=== PATIENT | male | born 1945 | race American Indian/Alaskan Native ===

== ENCOUNTER 2017-11-13 00:24 | Emergency (ER) | payer MEDICARE, OTHER ==
[~2017-11-13] VITALS: Ht 162.6 cm; Wt 87.5 kg
[~2017-11-13 00:24] MED LIST: ADVIL200 M1 PO; ASPIRIN EC325 MG PO; CARDIZEM CD120 MG PO; CYCLOBENZAPRINE10 MG PO; CYCLOBENZAPRINE5 MG PO; D-20002000 UNIT PO; ELIQUIS5 MG PO; HYDROXYUREA500 MG PO; LEVOTHYROXINE50 MCG PO; TAMSULOSIN HCL0.4 MG PO; TRAMADOL HCL50 MG PO; TYLENOL325 MG PO
--- NOTE | 2017-11-13 18:23 | EKG ---
[facility] [address] [facility] [place] [address] Signed Sinus bradycardia Septal infarct , age undetermined Abnormal ECG When compared with ECG of 06-FEB-2016 03:09, Sinus rhythm has replaced Atrial fibrillation Septal infarct is now present Confirmed by EDOUARD MCWILLIAMS MD ([id number]) on 11/13/2017 6:22:51 PM Electronically Signed By: EDOUARD MCWILLIAMS MD 11/13/17 1823 PATIENT NAME: FLORA DANIELSON Electrocardiogram DATE OF : 45 PHYSICIAN: EDOUARD MCWILLIAMS MD REPORT #: [id number] REPORT IS CONFIDENTIAL AND NOT TO BE RELEASED WITHOUT AUTHORIZATION
== END 2017-11-13 02:45 | disposition home or self-care (01) ==
LOC: ED 00:24
DX: R20.2 Paresthesia of skin (principal); E03.9 Hypothyroidism, unspecified; Z88.5 Allergy status to narcotic agent; Z79.899 Other long term (current) drug therapy
CPT/HCPCS: 70450; 80053; 81001; 84484; 85025; 93005; 93010; 99284

== ENCOUNTER 2019-06-30 08:15 | Day surgery (SDC) | payer MEDICARE, OTHER ==
[~2019-06-30] VITALS: Ht 162.6 cm; Wt 88.0 kg
[~2019-06-30 08:15] MED LIST changes: +ACETAMINOPHEN325 M1 PO; +ADVIL200 MG PO; +XARELTO20 MG PO
[2019-06-30] MEDS ORDERED: ADULT ASPIRIN R81 MG PO (08:39)
[2019-06-30] MEDS ORDERED: XARELTO20 MG PO (08:39)
--- NOTE | 2019-06-30 10:27 | NUR ---
06/30/19 Amarjit6 Jazzmine Tierney9-PT ARRIVES ON RA TO PACU FROM ENDO ROOM. REPORT RECEIVED. VSS. SATS 98% ON RA. PT NONRESPONSIVE TO VERBAL STIMULUS AT THIS TIME. 1026-PT WAKES TO VERBAL STIMULUS. VSS.
--- NOTE | 2019-06-30 11:11 | NUR ---
RETURNED IS TOO SLEEPY TO GO HOME FAMILY IN ROOM. AROUSES WITH VIGOROUS TOUCH.
--- NOTE | 2019-06-30 11:54 | NUR ---
1130 PT WAKE AND REQUESTS TO GO HOME. HAS TAKEN SOME WATER. SAYS IM READY TO GET MY CLOTHES ON.
--- NOTE | 2019-07-01 07:08 | OR ---
[facility] [address] [place], [place] [address] Signed DATE OF OPERATION: 06/30/2019 SURGEON: Marky Gooden MD PREOPERATIVE DIAGNOSIS: Screening. POSTOPERATIVE DIAGNOSES: 1. Sessile polyps measuring 7-15 mm (at hepatic flexure, distal hepatic flexure), 95 cm, 85 cm, 78 cm (tattoo), 68 cm (tattoo), 28 cm and 22 cm (tattoo). 2. Eqfcxbg-lg-riozkoli internal hemorrhoids. PROCEDURE PERFORMED: Colonoscopy with hot biopsy and injection of tattoos x3. ESTIMATED BLOOD LOSS: None. INDICATIONS: Flora is a 73-year-old gentleman, who was asked to see me for a followup colonoscopy. He had a negative colonoscopy in [address] Barrett. He said there is no family history of colon cancer or polyps. He has no lower GI complaints. In the office, I gave Flora and his a booklet on colonoscopy. We did review the nature of the test along with the risks including, but not limited to gas bloating, crampy abdominal pain, bleeding, perforation requiring surgery, and missed diagnosis. We also discussed the need for IV conscious sedation. He had expressed understanding and wished to proceed. DESCRIPTION OF PROCEDURE: Flora was taken in the endoscopy suite and placed in the left lateral decubitus position. He was given a total of 6 mg of Versed and 200 mcg fentanyl to cover the case. A digital rectal exam was performed and this was unremarkable. The adult colonoscope was introduced and advanced around into the cecum itself under direct visualization of camera without difficulty. His prep was good. It took a little extra sedation, abdominal compression in order to advance the scope. The scope was slowly withdrawn. We could easily see the appendiceal orifice and the ileocecal valve. The above-mentioned polyps were removed with the help of hot biopsy forceps. We left tattoos at 78 cm, 68 cm, and 22 cm. The smallest polyps were 6 or 7 mm in diameter. The others were as high as 12 to 15 mm. We felt all were completely removed with a hot biopsy forceps. Because his prep was good, we felt we had a good view of his colon. We took significant time to evaluate the colon. We saw no diverticuli. The rectum was Electronically Signed By: MARKY GOODEN MD 07/01/19 0708 PATIENT NAME: FLORA DANIELSON OPERATIVE REPORT DATE OF : 45 REPORT #: [id number] PHYSICIAN: MARKY GOODEN MD PCP: JUAN C KIRKLAND MD REPORT IS CONFIDENTIAL AND NOT TO BE RELEASED WITHOUT AUTHORIZATION [facility] [address] [place], [place] [address] Signed unremarkable. Upon retroflexion of scope, we did appreciate ininjpj-gs-padbbvks internal hemorrhoids. After this, the gas was suctioned out and the colonoscope removed. Flora tolerated his procedure quite well. RECOMMENDATIONS: I will see Flora back in my office in 7 to 14 days to review his results. He can resume his aspirin, ibuprofen, and Xarelto in one week. Marky Gooden MD ALB/MODL /[id number] cc: MD Juan C Adams MD Andrew L Bower, MD Copies: MARIA ESTHER SOLANO MD, JAMES MD BOWER,MARKY Hilliard MD ~ Electronically Signed By: MARKY GOODEN MD 07/01/19 0708 PATIENT NAME: FLORA DANIELSON OPERATIVE REPORT DATE OF : 45 REPORT #: [id number] PHYSICIAN: MARKY GOODEN MD PCP: JUAN C KIRKLAND MD REPORT IS CONFIDENTIAL AND NOT TO BE RELEASED WITHOUT AUTHORIZATION
--- NOTE | 2019-07-01 16:52 | PATH ---
[facility] [address] [place], [place] [address] Signed SPECIMEN(S): A COLON POLYP AT 22 CM SPECIMEN(S): B COLON POLYP AT 68 CM SPECIMEN(S): C COLON POLYP AT 78 CM SPECIMEN(S): D HEPATIC FLEXURE POLYP SPECIMEN(S): E DISTAL HEPATIC FLEXURE POLYP SPECIMEN(S): F COLON POLYP AT 95 CM SPECIMEN(S): G COLON POLYP AT 85 CM SPECIMEN(S): H COLON POLYP AT 28 CM SPECIMEN SOURCE: A. COLON POLYP AT 22 CM B. COLON POLYP AT 68 CM C. COLON POLYP AT 78 CM D. HEPATIC FLEXURE POLYP E. DISTAL HEPATIC FLEXURE POLYP F. COLON POLYP AT 95 CM G. COLON POLYP AT 85 CM H. COLON POLYP AT 28 CM CLINICAL HISTORY: Screening. Postop: Colon polyps, internal hemorrhoids. MICROSCOPIC DESCRIPTION: Histologic sections of all submitted blocks are examined by light microscopy. These findings, together with the gross examination, support the pathologic diagnosis. FINAL PATHOLOGIC DIAGNOSIS: A. Mucosa, colon at 22 cm, biopsy: - Features suggestive but not diagnostic of adenomatous polyp (See comment). B. Mucosa, colon at 68 cm, biopsy: - Tubular adenoma. C. Mucosa, colon at 78 cm, biopsy: - Tubular adenoma. D. Mucosa, hepatic flexure, biopsy: - Tubular adenoma. E. Mucosa, distal hepatic flexure, biopsy: - Tubular adenoma. F. Mucosa, colon at 95, biopsy: - Features suggestive but not entirely diagnostic of adenomatous polyp (See comment). G. Mucosa, colon at 85 cm, biopsy: PATIENT NAME: FLORA DANIELSON PATHOLOGY DATE OF : 45 REPORT #: [id number] PHYSICIAN: JOANN PATHOLOGY PCP: JUAN C KIRKLAND MD REPORT IS CONFIDENTIAL AND NOT TO BE RELEASED WITHOUT AUTHORIZATION [facility] [address] [place], [place] [address] Signed - Tubular adenoma. H. Mucosa, colon at 28 cm, biopsy: - Tubular adenoma. COMMENT: A -- Multiple levels over three slides are examined. Complete evaluation not possible due to prominent heat type artifact. F -- Multiple levels over two slides are examined (block exhausted at that point). Superficial partial adenomatous change seen, heat artifact also complicates interpretation. LJA:cml:C2NR GROSS DESCRIPTION: Eight specimens are received in eight containers, labeled GS. A. The specimen, labeled "GS, 1" and "colon polyp at 22 cm" on the requisition, is received in formalin and consists of three soft mandel tissue fragments that vary from 0.2-0.3 cm and are submitted in toto in cassette A1. B. The specimen, labeled "GS, 2" and "colon polyp at 68 cm" on the requisition, is received in formalin and consists of three soft mandel tissue fragments that measure 0.3 cm each. The specimen is entirely submitted in cassette B1. C. The specimen, labeled "GS, 3" and "colon polyp at 78 cm" on the requisition, is received in formalin and consists of three soft mandel tissue fragments that vary from 0.1-0.3 cm and are submitted in toto in cassette C1 D. The specimen, labeled "GS, 4" and "hepatic flexure polyp" on the requisition, is received in formalin and consists of two soft mandel tissue fragments that measure 0.2 and 0.3 cm. The specimen is submitted in toto in cassette D1. E. The specimen, labeled "GS, 5" and "distal hepatic flexure polyp" on the requisition, is received in formalin and consists of seven soft mandel tissue fragments that vary from 0.1-0.3 cm and are submitted in toto in cassette E1. F. The specimen, labeled "GS, 6" and "colon polyp at 95 cm" on the requisition, is received in formalin and consists of a 0.3 cm soft mandel tissue fragment that is submitted in toto in cassette F1. G. The specimen, labeled "GS, 7" and "colon polyp at 85 cm" on the requisition, is received in formalin and consists of seven soft mandel tissue fragments that vary from 0.1-0.3 cm and are submitted in toto in cassette G1. PATIENT NAME: FLORA DANIELSON PATHOLOGY DATE OF : 45 REPORT #: [id number] PHYSICIAN: JOANN GROVE PCP: JUAN C KIRKLAND MD REPORT IS CONFIDENTIAL AND NOT TO BE RELEASED WITHOUT AUTHORIZATION [facility] [address] [place], [place] [address] Signed H. The specimen, labeled "GS, 8" and "colon polyp at 28 cm, is received in formalin and consists of two soft mandel tissue fragments that measure 0.3 cm each and are submitted in toto in cassette H1. SS (under the direct supervision of a pathologist) The Gross Description was prepared using a voice recognition system. The report was reviewed for accuracy; however, sound-alike word errors, addition and/or deletions may occur. If there is any question about this report, please contact Client Services. PERFORMING LABORATORY: The technical component was performed by [employer], [address] [place] [id number] (Granular Operator: Rhianna Mckeon MD; CLIA# [id number]). [facility], [address] [place] [address] (CLIA# [id number]). Diagnostician: Krishna Valentin MD Pathologist Electronically Signed 07/01/2019 Copies: ~ PATIENT NAME: FLORA DANIELSON PATHOLOGY DATE OF : 45 REPORT #: [id number] PHYSICIAN: JOANN GROVE PCP: JUAN C KIRKLAND MD REPORT IS CONFIDENTIAL AND NOT TO BE RELEASED WITHOUT AUTHORIZATION
== END 2019-06-30 11:40 | disposition home or self-care (01) ==
LOC: OPS 08:15 → DS 08:18 → OPS 09:45 → DS 10:30 → OPS 10:30
PROVIDERS: Colon & Rectal Surgery
PROC: 0DBE8ZZ Excision of Large Intestine, Via Natural or Artificial Opening Endoscopic (ICD-10-PCS; 2019-06-30)
PROC: 0DBL8ZZ Excision of Transverse Colon, Via Natural or Artificial Opening Endoscopic (ICD-10-PCS; principal; 2019-06-30 09:45)
DX: Z12.11 Encounter for screening for malignant neoplasm of colon (principal); D12.3 Benign neoplasm of transverse colon; D12.6 Benign neoplasm of colon, unspecified; K64.8 Other hemorrhoids; E78.5 Hyperlipidemia, unspecified; E55.9 Vitamin D deficiency, unspecified; E03.9 Hypothyroidism, unspecified; I48.0 Paroxysmal atrial fibrillation; I10 Essential (primary) hypertension; Z86.73 Personal history of transient ischemic attack (TIA), and cerebral infarction without residual deficits; Z98.890 Other specified postprocedural states; Z87.891 Personal history of nicotine dependence; Z88.5 Allergy status to narcotic agent; Z79.82 Long term (current) use of aspirin; Z79.899 Other long term (current) drug therapy
CPT/HCPCS: 99153; G0500; J2250; J3010; J7121

== ENCOUNTER 2019-07-11 20:28 | Inpatient (IN) | payer MEDICARE, OTHER ==
[~2019-07-11] VITALS: Ht 162.6 cm; Wt 83.9 kg
[~2019-07-11 20:28] MED LIST changes: +ADULT ASPIRIN R81 MG PO
[2019-07-12] MEDS ORDERED: DILTIAZEM ER120 M2 PO (09:53)
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
--- NOTE | 2019-07-14 06:29 | OR ---
[facility] [address] [place], [place] [address] Signed DATE OF OPERATION: 07/13/2019 SURGEON: Marky Gooden MD PREOPERATIVE DIAGNOSES: 1. Lower gastrointestinal bleed following colonoscopy with 8 polypectomies on 06/30/2019. 2. Daily Xarelto and aspirin. 3. Anemia. POSTOPERATIVE DIAGNOSES: 1. Multiple healing nonbleeding polypectomy sites. 2. Likely source of blood loss was polypectomy site at 70 cm. 3. Possible polyp in proximal transverse colon. PROCEDURE: Colonoscopy without biopsy. ESTIMATED BLOOD LOSS: None. FINDINGS: Flora had only old blood mixed with liquid stool in the colon. There was no fresh red blood. Polypectomy sites were all visualized and found to be hemostatic. However, the polypectomy site at 70 cm seems to be the deepest and probably has some blood clot across the bottom, although it is quite adherent. Two polypectomy sites in the hepatic flexure also were somewhat broad and also could represent a potential source of bleeding, although not currently. INDICATIONS: Flora is a 73-year-old gentleman who came to us on June 30, 2019 for a colonoscopy. This was actually done for screening purposes. He had at least 8 polyps removed measuring anywhere from 7-15 mm. He had tattoos left at 70 cm, 68 cm and 22 cm. He also had uaciqak-yk-cmndhxze internal hemorrhoids. He did well. He was discharged to home as usual. We had him resume the Xarelto and the aspirin on postoperative day #6. He takes the medication because of a previous history of atrial fibrillation, although he has been in sinus rhythm both on the of this month as well as here in the hospital. He has also had a previous stroke. He came back to our emergency room obviously with bright red blood per rectum along with some dark blood. He had been admitted to the Internal Medicine Service. I had been asked to see me in consultation. He did receive 2 units of packed red blood cells. He also received Kcentra because of Electronically Signed By: MARKY GOODEN MD 07/14/19 0629 PATIENT NAME: FLORA DANIELSON OPERATIVE REPORT DATE OF : 45 REPORT #: [id number] PHYSICIAN: MARKY GOODEN MD PCP: JUAN C KIRKLAND MD REPORT IS CONFIDENTIAL AND NOT TO BE RELEASED WITHOUT AUTHORIZATION [facility] [address] [place], [place] [address] Signed the Xarelto. We did not add any platelets with a history of aspirin. Hemoglobin had dropped as low as 7.4, but went up to just over 9 with the 2 units of packed red blood cells. BUN was 18 when we started and was 13 on followup. INR was a little up at 1.7. I met with Flora and his here in the hospital. I had reviewed the above findings with them. We had resuscitated him overnight and putting to the bowel prep the following day. He still was having a little bit of dark maroon-colored liquid stool this morning. I had reviewed with Flora and his this ID of the polypectomy sites associated with his Xarelto and his aspirin. The bleeding rate is less than 1%, but it can happen a week or more later as the stool builds up and comes past the polypectomy sites. I reviewed with them the need to repeat the colonoscopy and make sure all the polypectomy sites were healing well and without any bleeding. Flora of course understands endoscopy quite well. In this situation and given his age, we did ask an anesthesia provider to help us with increased monitoring and sedation with propofol. They had expressed understanding and wished to proceed. PROCEDURE NOTE: Flora was taken into our endoscopy suite and placed in the left lateral decubitus position. He was given sedation per our nurse correctional therapy teacher. Specifically, he was placed under general endotracheal tube anesthesia. Digital rectal exam was performed and this was unremarkable other than the slight maroon-colored liquid stool on the finger. The adult colonoscope was introduced and advanced under direct visualization of the camera without difficulty. There were a couple areas of liquid stool that we suctioned out. Once again, we needed a little extra sedation with the propofol and some abdominal compression in order to get the scope around the hepatic flexure and into the cecum itself. We could easily see the appendiceal orifice and the ileocecal valve. The scope was slowly withdrawn. We easily identified the 2 polypectomy sites of the hepatic flexure, although somewhat broad and flat, they were not currently bleeding. We slowly withdrew the camera and we were pretty confident we saw a polyp somewhere in the proximal transverse colon that could be addressed in 12-18 months. However, we did not address it currently due the concern for bleeding. As the scope was withdrawn, we identified the other polypectomy sites and our tattoos. Our deepest polypectomy site appears to be at 70 cm. It has dark adherent flat clot around the bottom. We irrigated that some and it seemed to be quite satisfactory. We did not add any clips or inject any epinephrine. The scope again was withdrawn all the way down through the colon back into the rectum. The other polypectomy sites appeared to be healing well without any bleeding. Of course, the rectum was unremarkable and upon retroflexion of the scope, we did not see any concerns above the anal canal. After this, the gas was suctioned out and the colonoscope removed. Flora tolerated the procedure quite well. He was weaned from his anesthesia and extubated and taken into the ICU in stable condition. RECOMMENDATIONS: Flora will be continued on a clear liquid diet. We are going to hold the Xarelto and the Electronically Signed By: MARKY GOODEN MD 07/14/19 0629 PATIENT NAME: FLORA DANIELSON OPERATIVE REPORT DATE OF : 45 REPORT #: [id number] PHYSICIAN: MARKY GOODEN MD PCP: JUAN C KIRKLAND MD REPORT IS CONFIDENTIAL AND NOT TO BE RELEASED WITHOUT AUTHORIZATION [facility] [address] [place] [id number] Signed aspirin for 4 weeks and allow these polypectomy sites to heal. We may need to repeat his colonoscopy in 12-18 months to see if we can relocate that polyp in the proximal transverse colon. Marky Gooden MD ALB/MODL /[id number] cc: MD Lynda Joyner MD Robert C Quackenbush, MD Andrew L Bower, MD Copies: JUAN C KIRKLAND MD, MERSHED MD QUACKENBUSH, ROBERT C MD BOWER, ANDREW L MD ~ Electronically Signed By: MARKY GOODEN MD 07/14/19 0629 PATIENT NAME: FLORA DANIELSON OPERATIVE REPORT DATE OF : 45 REPORT #: [id number] PHYSICIAN: MARKY GOODEN MD PCP: JUAN C KIRKLAND MD REPORT IS CONFIDENTIAL AND NOT TO BE RELEASED WITHOUT AUTHORIZATION
[2019-07-14] MEDS ORDERED: PANTOPRAZOLE SO40 MG PO (12:46)
== END 2019-07-14 13:50 | disposition home or self-care (01) | DRG 920 ==
LOC: ED 20:28 → CCU 22:36
PROVIDERS: Colon & Rectal Surgery; ADMIT Student in an Organized Health Care Education/Training Program
PROC: 30233N1 Transfusion of Nonautologous Red Blood Cells into Peripheral Vein, Percutaneous Approach (ICD-10-PCS; 2019-07-11)
PROC: 0DJD8ZZ Inspection of Lower Intestinal Tract, Via Natural or Artificial Opening Endoscopic (ICD-10-PCS; principal; 2019-07-13 11:15)
DX: K91.840 Postprocedural hemorrhage of a digestive system organ or structure following a digestive system procedure (principal); D62 Acute posthemorrhagic anemia; D45 Polycythemia vera; I48.0 Paroxysmal atrial fibrillation; E03.9 Hypothyroidism, unspecified; N40.0 Benign prostatic hyperplasia without lower urinary tract symptoms; Z87.891 Personal history of nicotine dependence; Z88.5 Allergy status to narcotic agent; Z79.01 Long term (current) use of anticoagulants; Z79.82 Long term (current) use of aspirin; Z79.899 Other long term (current) drug therapy
CPT/HCPCS: 36415; 36430; 80048; 80053; 83690; 83735; 84100; 85018; 85025; 85610; 85730; 86850; 86900; 86901; 86920; 96361; 96374; 96375; 99285-25; C9113; C9132; J0330; J2405; J2704; J7030; J7121; P9016

== ENCOUNTER 2022-02-04 06:22 | Day surgery (SDC) | payer MEDICARE, OTHER ==
[~2022-02-04] VITALS: Ht 162.6 cm; Wt 89.4 kg
[~2022-02-04 06:22] MED LIST changes: +DILTIAZEM ER120 M2 PO; +PANTOPRAZOLE SO40 MG PO
--- NOTE | 2022-02-04 08:17 | NUR ---
02/04/22 0817 Riddhi Tinoco 0844-PATIENT ARRIVED TO PACU ON 2L NC RR EVEN 99% LAYING LEFT LATERAL. ABDOMEN SOFT. PATIENT REACTIVE TO VERBAL STIMULI OPENING EYES REMAINS VERY DROWSY AND DOZES BACK TO SLEEP. IVF INFUISNG
--- NOTE | 2022-02-04 08:32 | NUR ---
PT ALERT, ORIENTED AND SUPPORTED BY HIS SON. PT HAS HAD SCOPE BEFORE, ALL QUESTIONS ASKED ANSWERED. SON WILL REMAIN FOR DC. GAVE CRISTIAN, ELECTRICIAN OFFICE IN TO TAKE PT. WILL FOLLOW
--- NOTE | 2022-02-04 09:21 | NUR ---
0915 PATIENT BACK TO DAY SURGERY DEPARTMENT. PATIENT IS DROWSY BUT RESPONDS TO VERBAL STIMULI. PATIENT DENIES ANY PAIN OR NAUSEA. PATIENT STATES "I AM JUST SLEEPY." BREATHING EQUAL AND UNLABORED. OXYGEN SATURATIONS ABOVE 95% ON ROOM AIR. IVF INFUSING. CALL LIGHT WITHIN REACH NO FUTHER NEEDS.
--- NOTE | 2022-02-04 09:41 | NUR ---
1053 PATIENT SON DISCUSSED CONCERNS ABOUT XERALTO BEING STARTED 2 WEEKS AFTER PROCEDURE. PATIENT SON DISCUSSED WITH DR. CAGE OFFICE. PATIENT SON STATES "[address] GOODEN NOTIFIED ABOUT THIS. DR. GOODEN STATES "PATIENT BLEED A LOT DURING PROCEDURE" PATIENT SON STATES "THEY WILL GO WITH DR. GOODEN RECCOMENDATION DUE TO HE WAS THE ONE DOING THE PROCEDURE." NO MORE QUESTIONS AT THIS TIME. CALL LIGHT WITHIN REACH NO FUTHER NEEDS.
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
--- NOTE | 2022-02-05 07:08 | OR ---
[facility] [address], [place] [address] Signed DATE OF OPERATION: 02/04/2022 SURGEON: Marky Gooden MD PREOPERATIVE DIAGNOSES: 1. Personal history of multiple colonic polyps, age 74, in 2019. 2. Tattoos at 22 cm, 68 cm, and 78 cm. 3. Internal hemorrhoids. 4. Paternal uncle with colon cancer. POSTOPERATIVE DIAGNOSES: 1. Tattoos at 22 cm, 68 cm, and 78 cm. 2. Small proximal single left colon diverticulum. 3. A 4 mm polyp at 80 cm. 4. A 10 mm sessile polyp and 4 mm polyp at 1100 cm/proximal transverse colon (snare). 5. A 4 mm polyp distal hepatic flexure. 6. A 5 mm polyp at 42 cm. 7. Minimal internal hemorrhoids. PROCEDURES: Colonoscopy, snare polypectomy, and hot biopsy. ESTIMATED BLOOD LOSS: None. INDICATIONS: Flora is a 76-year-old gentleman, who is hard of hearing and has a history of polycythemia vera requiring Xarelto and aspirin. He also uses hydroxyurea. He underwent a colonoscopy in 2008 for [address] bleeding [address] Barrett. A single biopsy was taken and it was unremarkable. I helped Flora with the colonoscopy in 2019. He had an adenomatous polyps removed, measuring 7 mm up to 15 mm. We left tattoos at 22 cm, 68 cm, and 78 cm. He also had internal hemorrhoids. He did well with Versed and fentanyl. We let him go back on Xarelto and aspirin a week later and ended up having a post polypectomy bleed. We had to repeat the colonoscopy and found that all the polypectomy sites were satisfactory and not bleeding. We have asked him to come back now on a short interval around 12-18 months given the above findings. 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 He is very active and very muscular. He said he has no lower GI complaints. He continues to follow along with his upholstery sewer, Dr. Tim Garsia. In the office, I gave Flora a pamphlet on colonoscopy. He recalls the nature of the test. There is risk including, but not limited to gas bloating, crampy Electronically Signed By: MARKY GOODEN MD 02/05/22 0708 PATIENT NAME: FLORA DANIELSON OPERATIVE REPORT DATE OF : 45 REPORT #: [id number] PHYSICIAN: MARKY GOODEN MD PCP: JUAN C KIRKLAND MD REPORT IS CONFIDENTIAL AND NOT TO BE RELEASED WITHOUT AUTHORIZATION [facility] [address], [place] [address] Signed abdominal pain, bleeding, perforation requiring surgery, and missed diagnosis. He also recalls the need for IV conscious sedation. He had expressed understanding and wished to proceed. DESCRIPTION OF PROCEDURE: Flora was taken into our endoscopy suite and placed in the left lateral decubitus position. He was given a total of 7 mg of Versed and 100 mcg of fentanyl to cover the case. A digital rectal exam was performed and this was unremarkable. Nothing in the way of external hemorrhoids, a good sphincter tone. We did not specifically palpate the prostate on this occasion. The adult colonoscope had been introduced and advanced all around into the cecum under direct visualization of camera. It took a little extra sedation and abdominal compression to get down into the cecum itself. His prep was good. We could easily see the appendiceal orifice and ileocecal valve. We took pictures throughout for photodocumentation. The scope was then slowly withdrawn. We found all three tattoos. We also saw just a single small diverticulum in the proximal left colon. The above polyps were removed with the help of hot biopsy forceps. We did have to use our snare at 110 cm to remove one polyp. All polypectomy sites were quite satisfactory, no bleeding. Because of the angle of the polyps on this occasion, we did not apply any clips. Once in the rectum, the scope had been retroflexed. He has minimal internal hemorrhoid tissue. After this, the gas was suctioned out, the colonoscope removed. Flora tolerated the procedure quite well. RECOMMENDATIONS: Flora will resume his aspirin in one week. He is going to resume his Xarelto in two weeks. No NSAIDs for one week. A little Tylenol is fine. He can resume his other chronic medications including the hydroxyurea. Also, Flora will follow up in my office in 7 to 14 days to review his results. Marky Gooden MD ALB/MODL /[id number] cc: Patient Chart Tim Garsia MD Electronically Signed By: MARKY GOODEN MD 02/05/22 0708 PATIENT NAME: FLORA DANIELSON OPERATIVE REPORT DATE OF : 45 REPORT #: [id number] PHYSICIAN: MARKY GOODEN MD PCP: JUAN C KIRKLAND MD REPORT IS CONFIDENTIAL AND NOT TO BE RELEASED WITHOUT AUTHORIZATION [facility] [address] [place], [place] [address] Signed MD Juan C Kelley MD Copies: TIM GARSIA MD, ANDREW L MD WINDE, JAMES MD ~ Electronically Signed By: MARKY GOODEN MD 02/05/22 0708 PATIENT NAME: FLORA DANIELSON OPERATIVE REPORT DATE OF : 45 REPORT #: [id number] PHYSICIAN: MARKY GOODEN MD PCP: JUAN C KIRKLAND MD REPORT IS CONFIDENTIAL AND NOT TO BE RELEASED WITHOUT AUTHORIZATION
== END 2022-02-04 10:05 | disposition home or self-care (01) ==
LOC: DS 06:22
PROVIDERS: ATTEND Colon & Rectal Surgery
PROC: 0DBE8ZX Excision of Large Intestine, Via Natural or Artificial Opening Endoscopic, Diagnostic (ICD-10-PCS; 2022-02-04)
PROC: 0DBE8ZX Excision of Large Intestine, Via Natural or Artificial Opening Endoscopic, Diagnostic (ICD-10-PCS; 2022-02-04)
PROC: 0DBL8ZX Excision of Transverse Colon, Via Natural or Artificial Opening Endoscopic, Diagnostic (ICD-10-PCS; principal; 2022-02-04 07:30)
DX: Z12.11 Encounter for screening for malignant neoplasm of colon (principal); Z80.0 Family history of malignant neoplasm of digestive organs; D12.6 Benign neoplasm of colon, unspecified; E03.9 Hypothyroidism, unspecified; K64.0 First degree hemorrhoids; D45 Polycythemia vera; Z79.82 Long term (current) use of aspirin; Z79.01 Long term (current) use of anticoagulants; Z86.73 Personal history of transient ischemic attack (TIA), and cerebral infarction without residual deficits; K57.30 Diverticulosis of large intestine without perforation or abscess without bleeding
CPT/HCPCS: 88305; 99153; G0500; J2250; J3010; J7121

== ENCOUNTER 2023-10-14 22:21 | Emergency (ER) | payer MEDICARE, OTHER ==
[~2023-10-14 22:21] MED LIST changes: +GABAPENTIN100 MG PO
[2023-10-14 23:30] VITALS: BP 145/78
[2023-10-15] MEDS ORDERED: ALEVE ARTHRITI100 GM TOP (06:51)
== END 2023-10-14 23:30 | disposition home or self-care (01) ==
LOC: ED 22:21
DX: K59.00 Constipation, unspecified (principal); E03.9 Hypothyroidism, unspecified; Z79.890 Hormone replacement therapy; Z79.899 Other long term (current) drug therapy; Z88.5 Allergy status to narcotic agent; Z79.82 Long term (current) use of aspirin
CPT/HCPCS: 99283

== ENCOUNTER 2025-03-16 21:48 | Emergency (ER) | payer MEDICARE, OTHER ==
[~2025-03-16] VITALS: Ht 167.6 cm; Wt 81.0 kg
--- OUTSIDE RECORDS SUMMARY | ~2025-03-16 | XMS | Continuity of Care Document ---
Demographics + + + | Address | [facility] [address] | | | [place] [address] | + + + | Preferred Language | Unknown | + + + | Marital Status | | + + + | Restorationism Affiliation | Unknown | + + + | Race | or | + + + | Ethnic Group | Not or | + + + Author + + + | Author | [facility] | + + + | Organization | [facility] | + + + | Address | [address] | | | [place] [address] | + + + | Phone | | + + + Care Team Providers + + + + | Care Investigations Manager Name | Role | Phone | + + + + Unavailable | Unavailable | + + + + Unavailable | Unavailable | + + + + Allergies No information. Encounters No information. Functional Status No information. Immunizations No information. Medications + + + + | date | description | facility | + + + + | (no date) | RIVAROXABAN | [facility] | | | | [facility] | + + + + | (no date) | RIVAROXABAN | [facility] | | | | [facility] | + + + + | (no date) | HYDROXYUREA | [facility] | | | | [facility] | + + + + | (no date) | HYDROXYUREA | [facility] | | | | [facility] | + + + + | (no date) | ASPIRIN | [facility] | | | | [facility] | + + + + | (no date) | ASPIRIN | [facility] | | | | [facility] | + + + + | (no date) | Aspirin | [facility] | | | | [facility] | + + + + | (no date) | Aspirin | [facility] | | | | [facility] | + + + + | (no date) | GABAPENTIN | [facility] | | | | [facility] | + + + + | (no date) | GABAPENTIN | [facility] | | | | [facility] | + + + + | (no date) | ACETAMINOPHEN | [facility] | | | | [facility] | + + + + | (no date) | ACETAMINOPHEN | [facility] | | | | [facility] | + + + + | (no date) | IBUPROFEN | [facility] | | | | [facility] | + + + + | (no date) | IBUPROFEN | [facility] | | | | [facility] | + + + + | (no date) | CHOLECALCIFEROL (VITAMIN | [facility] | | | D3) | [facility] | + + + + | (no date) | CHOLECALCIFEROL (VITAMIN | [facility] | | | D3) | [facility] | + + + + | (no date) | CYCLOBENZAPRINE HCL | [facility] | | | | [facility] | + + + + | (no date) | CYCLOBENZAPRINE HCL | [facility] | | | | [facility] | + + + + | (no date) | CYCLOBENZAPRINE HCL | [facility] | | | | [facility] | + + + + | (no date) | CYCLOBENZAPRINE HCL | [facility] | | | | [facility] | + + + + | (no date) | DILTIAZEM HCL | [facility] | | | | [facility] | + + + + | (no date) | DILTIAZEM HCL | [facility] | | | | [facility] | + + + + | (no date) | TRAMADOL HCL | [facility] | | | | [facility] | + + + + | (no date) | TRAMADOL HCL | [facility] | | | | [facility] | + + + + | (no date) | Diclofenac Sodium | [facility] | | | | [facility] | + + + + | (no date) | Diclofenac Sodium | [facility] | | | | [facility] | + + + + | (no date) | TAMSULOSIN HCL | [facility] | | | | [facility] | + + + + | (no date) | TAMSULOSIN HCL | [facility] | | | | [facility] | + + + + | (no date) | LEVOTHYROXINE SODIUM | [facility] | | | | [facility] | + + + + | (no date) | LEVOTHYROXINE SODIUM | [facility] | | | | [facility] | + + + + Problems No information. Procedures No information. Results/Labs No information. Social History +--------+ + + | date | description | facility | +--------+ + + Vital Signs No information."
[~2025-03-16 21:48] MED LIST changes: +ALEVE ARTHRITI100 GM TOP
[2025-03-16] MEDS ORDERED: SODIUM CHLORIDE 0.9% 500 ML IV ONE (22:00)
[2025-03-16 22:01] LABS: BASOPHILS 0.2 % (0.2-1.2); EOSINOPHILS 0.5 % (0.8-7.0); LYMPHOCYTES 6.5 % (21.8-53.1); MCH 31.4 PG (25.7-32.2); MCHC 34.1 g/dL (32.3-36.5); MCV 92.2 fL (79.0-92.2); MONOCYTES 6.0 % (5.3-12.2); NEUTROPHILS 86.5 % (34.0-67.9); RBC 4.74 M/uL (4.63-6.08)
[2025-03-16] MEDS ORDERED: LEVOTHYROXINE75 MCG PO (22:09)
[2025-03-16 22:42] LABS: ALT (SGPT) 11.0 U/L (14-59); AST (SGOT) 27.0 U/L (15-37); GLOMERULAR FILTRATION RATE,EST 90.0 mL/min (>60); PROTEIN, TOTAL 7.6 g/dL (6.4-8.2); UREA NITROGEN 21.0 mg/dL (7-18)
[2025-03-17 00:16] LABS: BLOOD/HGB, URINE TRACE-I (Negative); KETONE, URINE NEGATIVE (Negative); LEUK ESTERASE, URINE NEGATIVE (negative); NITRITE, URINE NEGATIVE (negative)
[2025-03-17 00:22] LABS: EPITHELIAL CELLS, URINE SQUAMOUS 1+ /lpf (0-1+)
[2025-03-17 00:23] LABS: BACTERIA, URINE RARE /hpf (negative); CRYSTALS, URINE CALCIUM OXALATE 1+ (0-1+)
[2025-03-17 00:24] LABS: CASTS, URINE NONE SEEN \\lpf; REFLEX CULTURE, URINE No (No)
[2025-03-17] MEDS ORDERED: ONDANSETRON ODT8 MG PO (00:41)
[2025-03-17] MEDS ORDERED: ONDANSETRON 4 MG HOME.PACK SL ONE (00:45)
[2025-03-17 00:58] VITALS: BP 101/76
--- NOTE | 2025-03-17 22:13 | EKG ---
[facility] [address] [facility] [place] [address] Signed Normal sinus rhythm Left axis deviation Abnormal ECG When compared with ECG of 13-NOV-2017 00:29, Vent. rate has increased BY 30 BPM Criteria for Septal infarct are no longer present ST no longer elevated in Lateral leads QT has lengthened Confirmed by Carolina Ragsdale MD () on 03/17/2025 10:13:43 PM Electronically Signed By: CAROLINA RAGSDALE MD 03/17/25 2213 PATIENT NAME: MARGIE DANIELSONMARGARITA Medeiros Electrocardiogram DATE OF : 45 PHYSICIAN: CAROLINA RAGSDALE MD REPORT #: [id number] REPORT IS CONFIDENTIAL AND NOT TO BE RELEASED WITHOUT AUTHORIZATION
== END 2025-03-17 01:17 | disposition home or self-care (01) ==
LOC: ED 21:48
DX: K52.9 Noninfective gastroenteritis and colitis, unspecified (principal); E03.9 Hypothyroidism, unspecified; Z79.82 Long term (current) use of aspirin; Z79.899 Other long term (current) drug therapy; Z88.5 Allergy status to narcotic agent
CPT/HCPCS: 36415; 80053; 81001; 83735; 85025; 93005; 93010; 99284; A9270; J7040